=== PATIENT | female | born 1945 | race African-American/Black ===

== ENCOUNTER 2021-10-12 10:24 | Inpatient (IN) ==
[2021-10-12] MEDS ORDERED: ONDANSETRON 4 MG/2 ML VIAL IV PRN (14:51)
[2021-10-12] MEDS ORDERED: GLUCAGON 1 MG VIAL IM PRN (14:51)
[2021-10-12] MEDS ORDERED: hydrALAZINE 20 MG/1 ML VIAL IV PRN (14:51)
[2021-10-12] MEDS ORDERED: ACETAMINOPHEN 325 MG TABLET PO PRN (14:51)
[2021-10-12] MEDS ORDERED: DEXTROSE 50% 25 GM/50 ML SYRINGE IV PRN (14:54)
[2021-10-12 15:45] LABS: Basophils # 0.1 10*3/uL (0.0-0.2); Basophils % 0.3 % (0.0-0.8); Eosinophils # 0.2 10*3/uL (0.0-0.87); Eosinophils % 1.1 % (0.00-10.9); Immature Granulocytes % 0.5 %; Immature Granulocytes Absolute 0.07 #; Lymphocytes # 1.8 10*3/uL (1.4-4.0); Lymphocytes % 12.4 % (21.3-54.2); Mean Corpuscular HGB Conc 31.4 GM/DL (32-36); Mean Corpuscular Volume 86.6 FL (87-102); Mean Platelet Volume 8.6 FL (9.6-12.0); Monocytes % 10.6 % (1.7-12.7); Neutrophils % 75.1 % (38.7-73.9); Platelet Count 256 T/CUMM (130-400); Red Blood Count 4.04 MC/CUMM (3.8-5.5); Red Cell Distribution Width 18.1 % (9.3-17.3); White Blood Count 14.7 T/CUMM (4-12)
[2021-10-12 16:11] LABS: Albumin 2.2 G/DL (3.4-5.0); Bilirubin,Total 0.7 MG/DL (0.20-1.00); Calcium 9.1 MG/DL (8.5-10.1); Osmolality,Calculated 272.8 MOS/KG (273-304); Potassium 3.3 MMOL/L (3.5-5.1); Total Protein 8.7 G/DL (6.4-8.2)
[2021-10-12] MEDS: INSULIN LISPRO 100 UNIT/ML SUBCUT SCH ×2 (16:15→21:34)
[2021-10-12] MEDS: LACTATED RINGERS 1,000 ML IV SCH (17:05)
[2021-10-12] MEDS: MEMANTINE 10 MG TABLET PO SCH (21:33)
[2021-10-12] MEDS: DIVALPROEX 500 MG TABLET PO SCH (21:33)
[2021-10-12] MEDS: HALOPERIDOL 1 MG TABLET PO SCH (21:33)
[2021-10-12] MEDS: BENZTROPINE 1 MG TABLET PO SCH (21:33)
[2021-10-12] MEDS: DONEPEZIL 10 MG TABLET PO SCH (21:33)
[2021-10-13] MEDS: LACTATED RINGERS 1,000 ML IV SCH (03:28)
[2021-10-13 05:14] LABS: Basophils # 0.1 10*3/uL (0.0-0.2); Basophils % 0.4 % (0.0-0.8); Eosinophils # 0.1 10*3/uL (0.0-0.87); Eosinophils % 0.4 % (0.00-10.9); Hematocrit 35.1 VOL% (35.7-47.0); Hemoglobin 11.1 GM/DL (12.0-16.0); Immature Granulocytes % 0.4 %; Immature Granulocytes Absolute 0.07 #; Lymphocytes % 12.5 % (21.3-54.2); Mean Corpuscular HGB Conc 31.6 GM/DL (32-36); Mean Corpuscular Volume 87.5 FL (87-102); Mean Platelet Volume 9.1 FL (9.6-12.0); Monocytes % 8.6 % (1.7-12.7); Neutrophils % 77.7 % (38.7-73.9); Platelet Count 288 T/CUMM (130-400); Red Blood Count 4.01 MC/CUMM (3.8-5.5); Red Cell Distribution Width 17.9 % (9.3-17.3); White Blood Count 16.1 T/CUMM (4-12)
[2021-10-13 05:37] LABS: Calcium 8.8 MG/DL (8.5-10.1); Osmolality,Calculated 273.7 MOS/KG (273-304)
[2021-10-13] MEDS ORDERED: HYDROmorphone 2 MG/1 ML VIAL IV PRN (06:26)
[2021-10-13] MEDS ORDERED: PROMETHAZINE INJ 25 MG in SODIUM CHLORIDE 0.9% 50 ML IV PRN (06:26)
[2021-10-13] MEDS ORDERED: diphenhydrAMINE 50 MG/1 ML VIAL IV PRN (06:26)
[2021-10-13] MEDS ORDERED: ONDANSETRON 4 MG/2 ML VIAL IV PRN (06:26)
[2021-10-13] MEDS ORDERED: MEPERIDINE 25 MG/1 ML VIAL IV PRN (06:26)
[2021-10-13] MEDS ORDERED: BACITRACIN OINT 0.9 GM PACK TOP ONE (06:47)
[2021-10-13] MEDS ORDERED: SEVOFLURANE 1 UNIT/15 MINUTE INH ONE (06:53)
[2021-10-13] MEDS ORDERED: ETOMIDATE 40 MG/20 ML VIAL IV ONE (06:53)
[2021-10-13] MEDS ORDERED: ROCURONIUM 50 MG/5 ML VIAL IV ONE (06:53)
[2021-10-13] MEDS ORDERED: SUCCINYLCHOLINE 200 MG/10 ML VIAL ONE (06:53)
[2021-10-13] MEDS ORDERED: LIDOCAINE 2% 5 ML VIAL ONE (06:53)
[2021-10-13] MEDS ORDERED: ONDANSETRON 4 MG/2 ML VIAL ONE (06:54)
[2021-10-13] MEDS ORDERED: fentaNYL 100 MCG/2 ML VIAL ONE (06:54)
[2021-10-13] MEDS: INSULIN LISPRO 100 UNIT/ML SUBCUT SCH ×4 (08:14→22:46)
[2021-10-13] MEDS ORDERED: ACETAMINOPHEN INJ 1,000 MG/100 ML VIAL IV ONE (08:33)
[2021-10-13] MEDS ORDERED: MAGNESIUM HYDROXIDE SUSP 30 ML UDCUP PO PRN (08:35)
[2021-10-13] MEDS ORDERED: CLINDAMYCIN INJ 900 MG/50 ML PREMIX IV ONE (08:36)
[2021-10-13] MEDS ORDERED: TRANEXAMIC ACID 1,000 MG/10 ML VIAL ONE (08:42)
[2021-10-13] MEDS ORDERED: LACTATED RINGERS 1,000 ML IV ONE (09:06)
[2021-10-13] MEDS: POTASSIUM CHLORIDE INJ 40 MEQ in LACTATED RINGERS 1,000 ML IV SCH (11:00)
[2021-10-13] MEDS: KETOROLAC 15 MG/1 ML VIAL IV SCH ×3 (11:52→20:38)
[2021-10-13] MEDS: CLINDAMYCIN INJ 900 MG/50 ML PREMIX IV SCH ×2 (14:04→20:39)
[2021-10-13] MEDS: BENZTROPINE 1 MG TABLET PO SCH (14:10)
[2021-10-13] MEDS: PANTOPRAZOLE 40 MG TABLET PO SCH (14:10)
[2021-10-13] MEDS: DIVALPROEX 500 MG TABLET PO SCH (14:10)
[2021-10-13] MEDS: HALOPERIDOL 1 MG TABLET PO SCH (14:10)
[2021-10-13] MEDS: amLODIPine 5 MG TABLET PO SCH (14:10)
[2021-10-13] MEDS: PARoxetine 10 MG TABLET PO SCH (14:10)
[2021-10-13] MEDS: DOCUSATE SODIUM 100 MG CAPSULE PO SCH (14:10)
[2021-10-13] MEDS: MEMANTINE 10 MG TABLET PO SCH (14:10)
[2021-10-13] MEDS: MORPHINE 2 MG/1 ML SYRINGE IV PRN (14:14)
[2021-10-13] MEDS ORDERED: MAGNESIUM SULF RIDER 4 GM/100 ML PREMIX IV PRN (14:50)
[2021-10-13] MEDS ORDERED: MAGNESIUM SULF RIDER 2 GM/50 ML PREMIX IV PRN (14:50)
[2021-10-13] MEDS: cefTRIAXone 1,000 MG in SODIUM CHLORIDE 0.9% 100 ML IV SCH (17:20)
[2021-10-13 17:38] LABS: Bilirubin,Urine Negative (Negative); Blood, Urine Small mg/dL (Negative); Glucose,Urine (UA) Negative (Negative); Hyaline Casts,Urine 1 /LPF (0-3); Ketones,Urine 5 mg/dL (Negative); Mucus,Urine Occasional /LPF (Occasional); Nitrite,Urine Negative (Negative); Protein,Urine Negative; RBC,Urine 6 /HPF (0-4); Urine Appearance CLEAR (Clear); Urine Color Yellow (Yellow); Urine Specific Gravity 1.015 (1.001-1.035); Urine Urobilinogen < 2.0 EU/DL (0.2-1.0)
[2021-10-13] MEDS: POTASSIUM CHLORIDE RIDER 10 MEQ/100 ML PREMIX IV PRN (18:02)
[2021-10-14] MEDS: POTASSIUM CHLORIDE INJ 40 MEQ in LACTATED RINGERS 1,000 ML IV SCH ×4 (01:53→17:22)
[2021-10-14] MEDS: KETOROLAC 15 MG/1 ML VIAL IV SCH (02:08)
[2021-10-14] MEDS: POTASSIUM CHLORIDE RIDER 10 MEQ/100 ML PREMIX IV PRN (02:08)
[2021-10-14] MEDS: FONDAPARINUX 2.5 MG/0.5 ML SYRINGE SUBCUT SCH (02:10)
[2021-10-14] MEDS: DONEPEZIL 10 MG TABLET PO SCH ×2 (04:13→20:40)
[2021-10-14] MEDS: BENZTROPINE 1 MG TABLET PO SCH ×3 (04:13→20:40)
[2021-10-14] MEDS: DIVALPROEX 500 MG TABLET PO SCH ×4 (04:14→22:35)
[2021-10-14] MEDS: HALOPERIDOL 1 MG TABLET PO SCH ×3 (04:14→20:40)
[2021-10-14] MEDS: DOCUSATE SODIUM 100 MG CAPSULE PO SCH ×3 (04:14→20:40)
[2021-10-14] MEDS: MEMANTINE 10 MG TABLET PO SCH ×3 (04:19→20:40)
[2021-10-14 06:44] LABS: Calcium 8.5 MG/DL (8.5-10.1); Potassium 4.6 MMOL/L (3.5-5.1)
[2021-10-14 06:45] LABS: Basophils % 0.2 % (0.0-0.8); Eosinophils # 0.2 10*3/uL (0.0-0.87); Eosinophils % 1.1 % (0.00-10.9); Hematocrit 29.5 VOL% (35.7-47.0); Hemoglobin 9.2 GM/DL (12.0-16.0); Immature Granulocytes % 0.5 %; Immature Granulocytes Absolute 0.07 #; Lymphocytes # 1.7 10*3/uL (1.4-4.0); Lymphocytes % 12.1 % (21.3-54.2); Mean Corpuscular HGB Conc 31.2 GM/DL (32-36); Mean Corpuscular Volume 86.5 FL (87-102); Mean Platelet Volume 9.7 FL (9.6-12.0); Neutrophils % 76.1 % (38.7-73.9); Platelet Count 274 T/CUMM (130-400); Red Blood Count 3.41 MC/CUMM (3.8-5.5); Red Cell Distribution Width 17.6 % (9.3-17.3); White Blood Count 14.1 T/CUMM (4-12)
[2021-10-14] MEDS: INSULIN LISPRO 100 UNIT/ML SUBCUT SCH ×4 (07:34→20:40)
[2021-10-14] MEDS: PANTOPRAZOLE 40 MG TABLET PO SCH (08:32)
[2021-10-14] MEDS: amLODIPine 5 MG TABLET PO SCH (08:32)
[2021-10-14] MEDS: PARoxetine 10 MG TABLET PO SCH (08:32)
[2021-10-14] MEDS: MORPHINE 2 MG/1 ML SYRINGE IV PRN (12:27)
[2021-10-14] MEDS: cefTRIAXone 1,000 MG in SODIUM CHLORIDE 0.9% 100 ML IV SCH (14:00)
[2021-10-15] MEDS: POTASSIUM CHLORIDE INJ 40 MEQ in LACTATED RINGERS 1,000 ML IV SCH ×2 (00:24→07:48)
[2021-10-15] MEDS: FONDAPARINUX 2.5 MG/0.5 ML SYRINGE SUBCUT SCH (04:58)
[2021-10-15 05:46] LABS: Basophils % 0.2 % (0.0-0.8); Eosinophils % 0.2 % (0.00-10.9); Hematocrit 31.1 VOL% (35.7-47.0); Immature Granulocytes % 0.8 %; Immature Granulocytes Absolute 0.16 #; Lymphocytes # 1.5 10*3/uL (1.4-4.0); Lymphocytes % 7.7 % (21.3-54.2); Mean Corpuscular HGB Conc 32.2 GM/DL (32-36); Mean Corpuscular Volume 85.4 FL (87-102); Mean Platelet Volume 9.6 FL (9.6-12.0); Monocytes % 11.8 % (1.7-12.7); Neutrophils % 79.3 % (38.7-73.9); Platelet Count 305 T/CUMM (130-400); Red Blood Count 3.64 MC/CUMM (3.8-5.5); Red Cell Distribution Width 17.2 % (9.3-17.3); White Blood Count 20.1 T/CUMM (4-12)
[2021-10-15 06:02] LABS: Calcium 9.3 MG/DL (8.5-10.1); Osmolality,Calculated 259.7 MOS/KG (273-304); Potassium 4.2 MMOL/L (3.5-5.1)
[2021-10-15 06:15] LABS: Hypochromasia 1+; Lymphocytes 6 % (20-55); Microcytosis 1+; Platelet Estimate Adequate; Segmented Neutrophils 76 % (50-85); Total Cells Counted 100
[2021-10-15] MEDS: INSULIN LISPRO 100 UNIT/ML SUBCUT SCH ×4 (07:35→22:39)
[2021-10-15] MEDS ORDERED: BISACODYL 10 MG SUPP RECTAL PRN (07:49)
[2021-10-15] MEDS: DIVALPROEX 500 MG TABLET PO SCH ×2 (08:17→22:38)
[2021-10-15] MEDS: BENZTROPINE 1 MG TABLET PO SCH ×2 (08:17→22:39)
[2021-10-15] MEDS: HALOPERIDOL 1 MG TABLET PO SCH ×2 (08:17→22:38)
[2021-10-15] MEDS: amLODIPine 5 MG TABLET PO SCH (08:17)
[2021-10-15] MEDS: PARoxetine 10 MG TABLET PO SCH (08:17)
[2021-10-15] MEDS: DOCUSATE SODIUM 100 MG CAPSULE PO SCH ×2 (08:17→22:39)
[2021-10-15] MEDS: PANTOPRAZOLE 40 MG TABLET PO SCH (08:17)
[2021-10-15] MEDS: MEMANTINE 10 MG TABLET PO SCH ×2 (08:17→22:39)
[2021-10-15] MEDS ORDERED: BISACODYL 10 MG SUPP RECTAL ONE (12:21)
[2021-10-15] MEDS ORDERED: MINERAL OIL ENEMA 133 ML BOTTLE RECTAL ONE (12:21)
[2021-10-15] MEDS: metroNIDAZOLE INJ 500 MG/100 ML PREMIX IV SCH ×2 (14:44→22:33)
[2021-10-15] MEDS: cefTRIAXone 1,000 MG in SODIUM CHLORIDE 0.9% 100 ML IV SCH (16:00)
[2021-10-15] MEDS: carvediloL 6.25 MG TABLET PO SCH (17:16)
[2021-10-15] MEDS: DONEPEZIL 10 MG TABLET PO SCH (22:38)
[2021-10-16] MEDS: metroNIDAZOLE INJ 500 MG/100 ML PREMIX IV SCH (05:06)
[2021-10-16] MEDS: FONDAPARINUX 2.5 MG/0.5 ML SYRINGE SUBCUT SCH (05:06)
[2021-10-16 05:11] LABS: Basophils % 0.1 % (0.0-0.8); Hematocrit 22.5 VOL% (35.7-47.0); Hemoglobin 7.2 GM/DL (12.0-16.0); Immature Granulocytes % 1.1 %; Immature Granulocytes Absolute 0.22 #; Lymphocytes % 9.9 % (21.3-54.2); Monocytes % 9.7 % (1.7-12.7); NRBC # 0.02 10*3/uL; Neutrophils % 79.2 % (38.7-73.9); Platelet Count 328 T/CUMM (130-400); Red Blood Count 2.68 MC/CUMM (3.8-5.5); Red Cell Distribution Width 17.2 % (9.3-17.3); White Blood Count 20.5 T/CUMM (4-12)
[2021-10-16] MEDS ORDERED: SODIUM CHLORIDE 0.9% 1,000 ML IV PRN (08:34)
[2021-10-16] MEDS ORDERED: VANCOMYCIN INJ 750 MG in SODIUM CHLORIDE 0.9% 250 ML IV SCH (09:00)
[2021-10-16 09:03] LABS: Calcium 8.4 MG/DL (8.5-10.1); Osmolality,Calculated 273.2 MOS/KG (273-304); Potassium 5.3 MMOL/L (3.5-5.1)
[2021-10-16] MEDS: HALOPERIDOL 1 MG TABLET PO SCH ×2 (09:26→21:03)
[2021-10-16] MEDS: INSULIN LISPRO 100 UNIT/ML SUBCUT SCH ×4 (09:26→21:33)
[2021-10-16] MEDS: PANTOPRAZOLE 40 MG TABLET PO SCH (09:27)
[2021-10-16] MEDS: MEMANTINE 10 MG TABLET PO SCH ×2 (09:27→21:03)
[2021-10-16] MEDS: carvediloL 6.25 MG TABLET PO SCH ×2 (09:27→16:34)
[2021-10-16] MEDS: amLODIPine 5 MG TABLET PO SCH (09:27)
[2021-10-16] MEDS: PARoxetine 10 MG TABLET PO SCH (09:27)
[2021-10-16] MEDS: DIVALPROEX 500 MG TABLET PO SCH ×2 (09:27→21:02)
[2021-10-16] MEDS: BENZTROPINE 1 MG TABLET PO SCH ×2 (09:27→21:03)
[2021-10-16] MEDS: DOCUSATE SODIUM 100 MG CAPSULE PO SCH ×2 (09:28→21:03)
[2021-10-16] MEDS: cefTRIAXone 1,000 MG in SODIUM CHLORIDE 0.9% 100 ML IV SCH (09:29)
[2021-10-16] MEDS: BACILLUS COAGULANS CAPLET PO SCH (09:29)
[2021-10-16] MEDS: CLINDAMYCIN INJ 600 MG/50 ML PREMIX IV SCH ×2 (11:21→21:00)
[2021-10-16] MEDS: VANCOMYCIN INJ 1,000 MG in SODIUM CHLORIDE 0.9% 250 ML IV SCH (13:17)
[2021-10-16] MEDS: DONEPEZIL 10 MG TABLET PO SCH (21:03)
[2021-10-17] MEDS: FONDAPARINUX 2.5 MG/0.5 ML SYRINGE SUBCUT SCH (04:22)
[2021-10-17] MEDS: CLINDAMYCIN INJ 600 MG/50 ML PREMIX IV SCH ×3 (05:51→21:42)
[2021-10-17 05:55] LABS: Basophils % 0.2 % (0.0-0.8); Eosinophils % 0.1 % (0.00-10.9); Hematocrit 27.1 VOL% (35.7-47.0); Hemoglobin 8.8 GM/DL (12.0-16.0); Immature Granulocytes % 1.3 %; Immature Granulocytes Absolute 0.24 #; Lymphocytes # 1.7 10*3/uL (1.4-4.0); Lymphocytes % 9.5 % (21.3-54.2); Mean Corpuscular HGB Conc 32.5 GM/DL (32-36); Mean Corpuscular Volume 86.6 FL (87-102); Mean Platelet Volume 9.3 FL (9.6-12.0); NRBC # 0.02 10*3/uL; Neutrophils % 76.9 % (38.7-73.9); Platelet Count 301 T/CUMM (130-400); Red Blood Count 3.13 MC/CUMM (3.8-5.5); Red Cell Distribution Width 15.6 % (9.3-17.3); White Blood Count 18.2 T/CUMM (4-12)
[2021-10-17 06:11] LABS: Calcium 8.2 MG/DL (8.5-10.1); Osmolality,Calculated 280.4 MOS/KG (273-304)
[2021-10-17] MEDS: BACILLUS COAGULANS CAPLET PO SCH (09:48)
[2021-10-17] MEDS: DIVALPROEX SPRINKLE 125 MG CAPSULE PO SCH ×2 (09:48→21:43)
[2021-10-17] MEDS: carvediloL 6.25 MG TABLET PO SCH ×2 (09:49→16:00)
[2021-10-17] MEDS: BENZTROPINE 1 MG TABLET PO SCH ×2 (09:49→21:43)
[2021-10-17] MEDS: PANTOPRAZOLE 40 MG TABLET PO SCH (09:49)
[2021-10-17] MEDS: MEMANTINE 10 MG TABLET PO SCH ×2 (09:49→21:43)
[2021-10-17] MEDS: amLODIPine 5 MG TABLET PO SCH (09:49)
[2021-10-17] MEDS: PARoxetine 10 MG TABLET PO SCH (09:49)
[2021-10-17] MEDS: DOCUSATE SODIUM 100 MG CAPSULE PO SCH ×2 (09:49→21:43)
[2021-10-17] MEDS: cefTRIAXone 1,000 MG in SODIUM CHLORIDE 0.9% 100 ML IV SCH (09:50)
[2021-10-17] MEDS: INSULIN LISPRO 100 UNIT/ML SUBCUT SCH ×4 (09:50→22:28)
[2021-10-17] MEDS: HALOPERIDOL 1 MG TABLET PO SCH ×2 (11:04→21:43)
[2021-10-17] MEDS: VANCOMYCIN INJ 1,000 MG in SODIUM CHLORIDE 0.9% 250 ML IV SCH (11:46)
[2021-10-17] MEDS: DONEPEZIL 10 MG TABLET PO SCH (21:43)
[2021-10-18] MEDS: FONDAPARINUX 2.5 MG/0.5 ML SYRINGE SUBCUT SCH (03:30)
[2021-10-18] MEDS: CLINDAMYCIN INJ 600 MG/50 ML PREMIX IV SCH ×3 (05:46→21:11)
[2021-10-18] MEDS: INSULIN LISPRO 100 UNIT/ML SUBCUT SCH ×4 (07:42→21:08)
[2021-10-18] MEDS: BENZTROPINE 1 MG TABLET PO SCH ×2 (09:14→21:10)
[2021-10-18] MEDS: carvediloL 6.25 MG TABLET PO SCH ×2 (09:14→17:07)
[2021-10-18] MEDS: BACILLUS COAGULANS CAPLET PO SCH (09:14)
[2021-10-18] MEDS: DOCUSATE SODIUM 100 MG CAPSULE PO SCH ×2 (09:15→21:10)
[2021-10-18] MEDS: amLODIPine 5 MG TABLET PO SCH (09:15)
[2021-10-18] MEDS: PANTOPRAZOLE 40 MG TABLET PO SCH (09:15)
[2021-10-18] MEDS: DIVALPROEX SPRINKLE 125 MG CAPSULE PO SCH ×2 (09:15→21:11)
[2021-10-18] MEDS: HALOPERIDOL 1 MG TABLET PO SCH ×2 (09:15→21:11)
[2021-10-18] MEDS: PARoxetine 10 MG TABLET PO SCH (09:15)
[2021-10-18] MEDS: MEMANTINE 10 MG TABLET PO SCH ×2 (09:15→21:10)
[2021-10-18] MEDS: cefTRIAXone 1,000 MG in SODIUM CHLORIDE 0.9% 100 ML IV SCH (09:16)
[2021-10-18] MEDS: VANCOMYCIN INJ 1,000 MG in SODIUM CHLORIDE 0.9% 250 ML IV SCH (10:31)
[2021-10-18] MEDS: DONEPEZIL 10 MG TABLET PO SCH (21:10)
[2021-10-19] MEDS: FONDAPARINUX 2.5 MG/0.5 ML SYRINGE SUBCUT SCH (04:58)
[2021-10-19] MEDS: CLINDAMYCIN INJ 600 MG/50 ML PREMIX IV SCH ×3 (05:25→21:01)
[2021-10-19 06:55] LABS: Basophils % 0.2 % (0.0-0.8); Eosinophils % 0.3 % (0.00-10.9); Hematocrit 26.8 VOL% (35.7-47.0); Hemoglobin 8.3 GM/DL (12.0-16.0); Immature Granulocytes % 1.1 %; Immature Granulocytes Absolute 0.15 #; Lymphocytes # 1.3 10*3/uL (1.4-4.0); Lymphocytes % 9.3 % (21.3-54.2); Mean Corpuscular Volume 89.3 FL (87-102); Mean Platelet Volume 9.4 FL (9.6-12.0); Monocytes % 10.4 % (1.7-12.7); Neutrophils % 78.7 % (38.7-73.9); Platelet Count 420 T/CUMM (130-400); Red Cell Distribution Width 15.7 % (9.3-17.3); White Blood Count 14.2 T/CUMM (4-12)
[2021-10-19] MEDS: INSULIN LISPRO 100 UNIT/ML SUBCUT SCH ×4 (07:14→21:07)
[2021-10-19 07:17] LABS: Calcium 9.1 MG/DL (8.5-10.1); Osmolality,Calculated 278.5 MOS/KG (273-304); Potassium 3.4 MMOL/L (3.5-5.1)
[2021-10-19] MEDS: DIVALPROEX SPRINKLE 125 MG CAPSULE PO SCH ×2 (08:44→21:03)
[2021-10-19] MEDS: cefTRIAXone 1,000 MG in SODIUM CHLORIDE 0.9% 100 ML IV SCH (08:44)
[2021-10-19] MEDS: HALOPERIDOL 1 MG TABLET PO SCH ×2 (08:44→21:05)
[2021-10-19] MEDS: BACILLUS COAGULANS CAPLET PO SCH (10:29)
[2021-10-19] MEDS: amLODIPine 5 MG TABLET PO SCH (10:29)
[2021-10-19] MEDS: BENZTROPINE 1 MG TABLET PO SCH ×2 (10:29→21:05)
[2021-10-19] MEDS: MEMANTINE 10 MG TABLET PO SCH ×2 (10:29→21:05)
[2021-10-19] MEDS: carvediloL 6.25 MG TABLET PO SCH ×3 (10:29→23:03)
[2021-10-19] MEDS: DOCUSATE SODIUM 100 MG CAPSULE PO SCH ×2 (10:29→21:04)
[2021-10-19] MEDS: PANTOPRAZOLE 40 MG TABLET PO SCH (10:30)
[2021-10-19] MEDS: PARoxetine 10 MG TABLET PO SCH (10:30)
[2021-10-19] MEDS: VANCOMYCIN INJ 1,000 MG in SODIUM CHLORIDE 0.9% 250 ML IV SCH (12:15)
[2021-10-19] MEDS: MORPHINE 2 MG/1 ML SYRINGE IV PRN (13:39)
[2021-10-19] MEDS: DONEPEZIL 10 MG TABLET PO SCH (21:04)
[2021-10-20] MEDS: FONDAPARINUX 2.5 MG/0.5 ML SYRINGE SUBCUT SCH (04:16)
[2021-10-20] MEDS: CLINDAMYCIN INJ 600 MG/50 ML PREMIX IV SCH ×3 (05:04→22:00)
[2021-10-20 05:16] LABS: Basophils % 0.1 % (0.0-0.8); Eosinophils # 0.1 10*3/uL (0.0-0.87); Eosinophils % 0.4 % (0.00-10.9); Hematocrit 22.9 VOL% (35.7-47.0); Hemoglobin 7.1 GM/DL (12.0-16.0); Immature Granulocytes % 1.2 %; Immature Granulocytes Absolute 0.19 #; Lymphocytes # 1.6 10*3/uL (1.4-4.0); Lymphocytes % 10.4 % (21.3-54.2); Mean Corpuscular Volume 89.5 FL (87-102); Mean Platelet Volume 9.1 FL (9.6-12.0); Monocytes % 12.5 % (1.7-12.7); Neutrophils % 75.4 % (38.7-73.9); Platelet Count 397 T/CUMM (130-400); Red Blood Count 2.56 MC/CUMM (3.8-5.5); Red Cell Distribution Width 15.9 % (9.3-17.3); White Blood Count 15.6 T/CUMM (4-12)
[2021-10-20 05:40] LABS: Calcium 8.4 MG/DL (8.5-10.1); Osmolality,Calculated 281.3 MOS/KG (273-304); Potassium 3.3 MMOL/L (3.5-5.1)
[2021-10-20] MEDS: BACILLUS COAGULANS CAPLET PO SCH (09:03)
[2021-10-20] MEDS: POTASSIUM CHLORIDE RIDER 10 MEQ/100 ML PREMIX IV PRN ×4 (09:03→15:02)
[2021-10-20] MEDS: amLODIPine 5 MG TABLET PO SCH (09:04)
[2021-10-20] MEDS: DOCUSATE SODIUM 100 MG CAPSULE PO SCH ×2 (09:04→20:34)
[2021-10-20] MEDS: DIVALPROEX SPRINKLE 125 MG CAPSULE PO SCH ×2 (09:04→20:35)
[2021-10-20] MEDS: PANTOPRAZOLE 40 MG TABLET PO SCH (09:04)
[2021-10-20] MEDS: BENZTROPINE 1 MG TABLET PO SCH ×2 (09:04→20:34)
[2021-10-20] MEDS: carvediloL 6.25 MG TABLET PO SCH ×2 (09:04→16:34)
[2021-10-20] MEDS: PARoxetine 10 MG TABLET PO SCH (09:05)
[2021-10-20] MEDS: MEMANTINE 10 MG TABLET PO SCH ×2 (09:05→20:35)
[2021-10-20] MEDS: INSULIN LISPRO 100 UNIT/ML SUBCUT SCH ×4 (09:05→20:35)
[2021-10-20] MEDS: HALOPERIDOL 1 MG TABLET PO SCH ×3 (09:05→20:35)
[2021-10-20] MEDS: DONEPEZIL 10 MG TABLET PO SCH (20:34)
[2021-10-21] MEDS: FONDAPARINUX 2.5 MG/0.5 ML SYRINGE SUBCUT SCH (05:21)
[2021-10-21] MEDS: CLINDAMYCIN INJ 600 MG/50 ML PREMIX IV SCH ×3 (05:21→21:23)
[2021-10-21 05:41] LABS: Basophils % 0.3 % (0.0-0.8); Eosinophils # 0.2 10*3/uL (0.0-0.87); Eosinophils % 1.4 % (0.00-10.9); Hematocrit 28.5 VOL% (35.7-47.0); Hemoglobin 8.6 GM/DL (12.0-16.0); Immature Granulocytes % 1.8 %; Immature Granulocytes Absolute 0.25 #; Lymphocytes # 1.8 10*3/uL (1.4-4.0); Lymphocytes % 12.8 % (21.3-54.2); Mean Corpuscular HGB Conc 30.2 GM/DL (32-36); Mean Corpuscular Volume 91.1 FL (87-102); Mean Platelet Volume 9.5 FL (9.6-12.0); Monocytes % 12.6 % (1.7-12.7); Neutrophils % 71.1 % (38.7-73.9); Platelet Count 503 T/CUMM (130-400); Red Blood Count 3.13 MC/CUMM (3.8-5.5); Red Cell Distribution Width 16.2 % (9.3-17.3); White Blood Count 13.8 T/CUMM (4-12)
[2021-10-21 06:05] LABS: Calcium 9.2 MG/DL (8.5-10.1); Osmolality,Calculated 278.4 MOS/KG (273-304); Potassium 3.5 MMOL/L (3.5-5.1)
[2021-10-21] MEDS: DIVALPROEX SPRINKLE 125 MG CAPSULE PO SCH ×2 (09:59→21:22)
[2021-10-21] MEDS: PARoxetine 10 MG TABLET PO SCH (09:59)
[2021-10-21] MEDS: carvediloL 6.25 MG TABLET PO SCH ×2 (09:59→17:41)
[2021-10-21] MEDS: BENZTROPINE 1 MG TABLET PO SCH ×2 (10:00→21:22)
[2021-10-21] MEDS: HALOPERIDOL 1 MG TABLET PO SCH ×2 (10:00→21:23)
[2021-10-21] MEDS: PANTOPRAZOLE 40 MG TABLET PO SCH (10:00)
[2021-10-21] MEDS: BACILLUS COAGULANS CAPLET PO SCH (10:00)
[2021-10-21] MEDS: amLODIPine 5 MG TABLET PO SCH (10:00)
[2021-10-21] MEDS: MEMANTINE 10 MG TABLET PO SCH ×2 (10:00→21:22)
[2021-10-21] MEDS: DOCUSATE SODIUM 100 MG CAPSULE PO SCH ×2 (10:00→21:22)
[2021-10-21] MEDS: INSULIN LISPRO 100 UNIT/ML SUBCUT SCH ×4 (10:01→20:46)
[2021-10-21] MEDS: ERGOCALCIFEROL 50,000 UNIT CAPSULE PO SCH (14:19)
[2021-10-21] MEDS: DONEPEZIL 10 MG TABLET PO SCH (21:22)
[2021-10-21] MEDS: CALCIUM (CARBONATE) 500 MG TABLET PO SCH (21:22)
[2021-10-22 13:16] LABS: Basophils % 0.1 % (0.0-0.8); Eosinophils # 0.2 10*3/uL (0.0-0.87); Eosinophils % 1.4 % (0.00-10.9); Hematocrit 23.9 VOL% (35.7-47.0); Hemoglobin 7.4 GM/DL (12.0-16.0); Immature Granulocytes % 2.3 %; Immature Granulocytes Absolute 0.32 #; Lymphocytes # 2.5 10*3/uL (1.4-4.0); Mean Corpuscular Volume 89.8 FL (87-102); Monocytes % 14.6 % (1.7-12.7); NRBC # 0.02 10*3/uL; Neutrophils % 63.6 % (38.7-73.9); Platelet Count 480 T/CUMM (130-400); Red Blood Count 2.66 MC/CUMM (3.8-5.5); Red Cell Distribution Width 16.3 % (9.3-17.3); White Blood Count 13.9 T/CUMM (4-12)
[2021-10-22 13:18] LABS: Calcium 8.7 MG/DL (8.5-10.1); Osmolality,Calculated 279.4 MOS/KG (273-304); Potassium 3.6 MMOL/L (3.5-5.1)
[2021-10-22] MEDS: INSULIN LISPRO 100 UNIT/ML SUBCUT SCH ×3 (13:52→21:58)
[2021-10-22] MEDS: CLINDAMYCIN INJ 600 MG/50 ML PREMIX IV SCH ×3 (13:52→21:47)
[2021-10-22] MEDS: FONDAPARINUX 2.5 MG/0.5 ML SYRINGE SUBCUT SCH (13:52)
[2021-10-22] MEDS: BACILLUS COAGULANS CAPLET PO SCH (13:53)
[2021-10-22] MEDS: DOCUSATE SODIUM 100 MG CAPSULE PO SCH ×2 (13:53→21:30)
[2021-10-22] MEDS: DIVALPROEX SPRINKLE 125 MG CAPSULE PO SCH ×2 (13:53→21:30)
[2021-10-22] MEDS: carvediloL 6.25 MG TABLET PO SCH ×2 (13:53→17:06)
[2021-10-22] MEDS: HALOPERIDOL 1 MG TABLET PO SCH ×2 (13:53→21:30)
[2021-10-22] MEDS: BENZTROPINE 1 MG TABLET PO SCH ×2 (13:53→21:30)
[2021-10-22] MEDS: MEMANTINE 10 MG TABLET PO SCH ×2 (13:53→21:30)
[2021-10-22] MEDS: PANTOPRAZOLE 40 MG TABLET PO SCH (13:54)
[2021-10-22] MEDS: amLODIPine 5 MG TABLET PO SCH (13:54)
[2021-10-22] MEDS: PARoxetine 10 MG TABLET PO SCH (13:54)
[2021-10-22] MEDS: CALCIUM (CARBONATE) 500 MG TABLET PO SCH ×2 (13:54→21:30)
[2021-10-22] MEDS: DONEPEZIL 10 MG TABLET PO SCH (21:30)
[2021-10-23] MEDS: FONDAPARINUX 2.5 MG/0.5 ML SYRINGE SUBCUT SCH (04:06)
[2021-10-23] MEDS: CLINDAMYCIN INJ 600 MG/50 ML PREMIX IV SCH ×2 (05:38→14:37)
[2021-10-23 06:33] LABS: Basophils % 0.2 % (0.0-0.8); Eosinophils # 0.2 10*3/uL (0.0-0.87); Eosinophils % 1.9 % (0.00-10.9); Hematocrit 24.2 VOL% (35.7-47.0); Hemoglobin 7.4 GM/DL (12.0-16.0); Immature Granulocytes % 2.4 %; Immature Granulocytes Absolute 0.29 #; Lymphocytes # 3.2 10*3/uL (1.4-4.0); Lymphocytes % 26.6 % (21.3-54.2); Mean Corpuscular HGB Conc 30.6 GM/DL (32-36); Mean Corpuscular Volume 89.6 FL (87-102); Monocytes % 14.3 % (1.7-12.7); NRBC # 0.03 10*3/uL; Neutrophils % 54.6 % (38.7-73.9); Platelet Count 587 T/CUMM (130-400); Red Cell Distribution Width 16.7 % (9.3-17.3); White Blood Count 12.2 T/CUMM (4-12)
[2021-10-23 06:55] LABS: Calcium 9.2 MG/DL (8.5-10.1); Osmolality,Calculated 283.1 MOS/KG (273-304); Potassium 3.8 MMOL/L (3.5-5.1)
[2021-10-23] MEDS ORDERED: SODIUM CHLORIDE 0.9% 1,000 ML IV PRN (08:13)
[2021-10-23] MEDS: carvediloL 6.25 MG TABLET PO SCH ×2 (09:38→17:05)
[2021-10-23] MEDS: ERGOCALCIFEROL 50,000 UNIT CAPSULE PO SCH (09:38)
[2021-10-23] MEDS: DIVALPROEX SPRINKLE 125 MG CAPSULE PO SCH ×2 (09:38→21:20)
[2021-10-23] MEDS: HALOPERIDOL 1 MG TABLET PO SCH ×2 (09:38→21:20)
[2021-10-23] MEDS: BENZTROPINE 1 MG TABLET PO SCH ×2 (09:39→21:20)
[2021-10-23] MEDS: BACILLUS COAGULANS CAPLET PO SCH (09:39)
[2021-10-23] MEDS: MEMANTINE 10 MG TABLET PO SCH ×2 (09:39→21:20)
[2021-10-23] MEDS: DOCUSATE SODIUM 100 MG CAPSULE PO SCH ×2 (09:39→21:23)
[2021-10-23] MEDS: INSULIN LISPRO 100 UNIT/ML SUBCUT SCH ×4 (09:39→23:07)
[2021-10-23] MEDS: amLODIPine 5 MG TABLET PO SCH (09:39)
[2021-10-23] MEDS: PANTOPRAZOLE 40 MG TABLET PO SCH (09:39)
[2021-10-23] MEDS: PARoxetine 10 MG TABLET PO SCH (09:40)
[2021-10-23] MEDS: CALCIUM (CARBONATE) 500 MG TABLET PO SCH ×2 (09:41→21:20)
[2021-10-23] MEDS: DONEPEZIL 10 MG TABLET PO SCH (21:22)
[2021-10-24] MEDS: FONDAPARINUX 2.5 MG/0.5 ML SYRINGE SUBCUT SCH (04:10)
[2021-10-24] MEDS: INSULIN LISPRO 100 UNIT/ML SUBCUT SCH ×2 (07:10→11:22)
[2021-10-24] MEDS: carvediloL 6.25 MG TABLET PO SCH (08:09)
[2021-10-24] MEDS: amLODIPine 5 MG TABLET PO SCH (08:09)
[2021-10-24] MEDS: BACILLUS COAGULANS CAPLET PO SCH (08:10)
[2021-10-24] MEDS: PARoxetine 10 MG TABLET PO SCH (08:10)
[2021-10-24] MEDS: MEMANTINE 10 MG TABLET PO SCH (08:10)
[2021-10-24] MEDS: DOCUSATE SODIUM 100 MG CAPSULE PO SCH (08:10)
[2021-10-24] MEDS: CALCIUM (CARBONATE) 500 MG TABLET PO SCH (08:10)
[2021-10-24] MEDS: DIVALPROEX SPRINKLE 125 MG CAPSULE PO SCH (08:10)
[2021-10-24] MEDS: BENZTROPINE 1 MG TABLET PO SCH (08:10)
[2021-10-24] MEDS: PANTOPRAZOLE 40 MG TABLET PO SCH (08:10)
[2021-10-24] MEDS: HALOPERIDOL 1 MG TABLET PO SCH (08:10)
[2021-10-24 08:24] LABS: Hematocrit 32.2 VOL% (35.7-47.0)
[2021-10-24 08:27] LABS: Hemoglobin 9.9 GM/DL (12.0-16.0)
[2021-10-24 11:26] VITALS: BP 136/64
== END 2021-10-24 12:06 | DRG 480 ==
LOC: SUATTDRO 12:14 → N.3E 12:14
PROVIDERS: ADMIT Internal Medicine; ATTEND Internal Medicine